=== PATIENT | male | born 1990 | race Two or more races ===

== ENCOUNTER 2024-05-10 21:30 | Emergency (ER) | payer SELFPAY ==
[2024-05-10 21:31] VITALS: BMI 28.8
--- NOTE | 2024-05-10 22:40 | PC.NURSE ---
NO ANSWER WHEN CALLED TO BE PLACED IN ROOM
== END 2024-05-11 01:00 | disposition left against medical advice (07) ==
LOC: SERX 22:10
PROVIDERS: Emergency Provider Emergency Medicine
DX: Z53.21 Procedure and treatment not carried out due to patient leaving prior to being seen by health care provider (principal)